=== PATIENT | female | born 1985 | race Hispanic/Latino ===

== ENCOUNTER 2020-12-16 11:09 | Emergency (ER) | payer OTHER ==
[~2020-12-16] VITALS: Ht 149.9 cm; Wt 61.2 kg
[2020-12-16 11:11] VITALS: BP 128/92
[2020-12-16] MEDS ORDERED: CYCLOBENZAPRINE HCL 10 MG TABLET PO SCH (12:45)
[2020-12-16] MEDS ORDERED: PROMETHAZINE HCL 25 MG/ML 1ML AMPULE IM SCH (12:45)
[2020-12-16] MEDS ORDERED: KETOROLAC 30MG VIAL (30MG/ML) IV SCH (12:45)
[2020-12-16 13:37] LABS: BASOPHILS % (AUTO) 0.6 % (0.0-5.0); EOSINOPHILS % (AUTO) 1.7 % (0.0-8.0); LYMPHOCYTES % (AUTO) 25.6 % (21.0-51.0); MEAN CORPUSCULAR VOLUME 93.7 fL (79-99); MONOCYTES % (AUTO) 5.1 % (3.0-13.0); NEUTROPHILS % (AUTO) 66.8 % (40.0-77.0); PLATELET COUNT (AUTO) 357 K/uL (130-400); RED BLOOD CELL COUNT(AUTO) 4.27 MIL/uL (4.00-5.50); RED CELL DISTRIBUTION WIDTH 12.8 % (11.0-15.5); WHITE BLOOD COUNT (AUTO) 4.7 K/uL (4.8-10.8)
[2020-12-16 13:46] LABS: APPEARANCE,URINE Clear (CLEAR); BILIRUBIN,URINE Negative (NEGATIVE); COLOR,URINE Yellow (YELLOW); GLUCOSE, URINE (UA) Negative (NEGATIVE); KETONES,URINE Negative (NEGATIVE); LEUKOCYTE ESTERASE ,URINE Negative (NEGATIVE); NITRATE,URINE Negative (NEGATIVE); OCCULT BLOOD,URINE Trace (NEGATIVE); PH,URINE 7.5 (5.0-8.0); PROTEIN,URINE Negative (NEGATIVE)
[2020-12-16 13:50] LABS: CARBON DIOXIDE 32 mmol/L (21-32); CHLORIDE 105 mmol/L (101-111); CREATININE 0.8 mg/dL (0.5-1.5); GLOMERULAR FILTR. RATE CALC 86 mL/min (>60); GLUCOSE,RANDOM 95 mg/dL (70-105); POTASSIUM 4.1 mmol/L (3.5-5.1); SODIUM SERUM 144 mmol/L (136-145); UREA NITROGEN, BLOOD 12 mg/dL (7-18)
[2020-12-16 13:57] LABS: ALANINE AMINOTRANSFERASE 22 U/L (12-78); ALBUMIN 4.3 g/dL (3.5-5.0); ASPARTATE AMINOTRANSFERASE 12 U/L (10-37); BILIRUBIN,TOTAL 0.6 mg/dL (0.2-1.0); TOTAL PROTEIN, SERUM 7.7 g/dL (6.0-8.3)
[2020-12-16 14:08] LABS: CRP QUANTITATIVE < 2.00 mg/L (0.00-9.0)
[2020-12-16 14:16] LABS: RBC,URINE 0-1 /HPF (0-1); WBC,URINE 0-1 /HPF (0-1)
[2020-12-16 14:17] LABS: BACTERIA,URINE None Seen /HPF (None Seen); SQUAMOUS EPITHELIAL CELL,UR Few /HPF (0-2)
[2020-12-16] MEDS ORDERED: 0.9% NACL 500ML IV.SOLN 500 ML IV ONE (14:53)
[2020-12-16] MEDS ORDERED: CLIN300C10 PO (15:42)
[2020-12-16] MEDS ORDERED: NAPR-1180 PO (15:42)
[2020-12-16] MEDS ORDERED: CYCL10 PO (15:42)
[2020-12-16 15:57] VITALS: BP 132/78
== END 2020-12-16 15:58 | disposition home or self-care (01) ==
LOC: EDH 11:09
DX: G44.209 Tension-type headache, unspecified, not intractable (principal); Z88.0 Allergy status to penicillin
CPT/HCPCS: 36415; 70450; 80053; 81001; 84703; 85025; 86140; 96361; 96372; 96374; 99285; J1885; J2550; J7040